=== PATIENT | female | born 1990 | race Two or more races ===

== ENCOUNTER 2019-02-20 21:14 | Emergency (ER) | payer OTHER ==
[2019-02-20 21:21] VITALS: BP 108/63
[2019-02-20] MEDS ORDERED: ACETAMINOPHEN 325 MG TABLET PO ONE (21:48)
--- NOTE | 2019-02-20 21:50 | ER Document Report ---
ED Medical Screen (RME) - General Chief Complaint: Chest Pain Stated Complaint: CHEST PAIN Time Seen by Provider: 02/20/19 21:46 - HPI Notes: 02/20/19 21:49 Patient is a 28-year-old female who is approximately 18 weeks who presents complaining of right upper quadrant pain and epigastric pain after she ate today. Patient states that the pain has been relatively constant does not radiate. Patient states that it is worse when she pushes in that area of her stomach. She is otherwise urinating normally and having normal bowel movements. Denies allergies. Surgical history consistent for to her abdomen. S he has not had any vaginal bleeding, odor, or discharge. No lower pelvic pains. No fever. I have treated and performed a rapid initial assessment of this patient. A comprehensive ED assessment and evaluation of the patient, analysis of test results and completion of medical decision making process will be conducted by additional ED providers. PHYSICAL EXAMINATION: GENERAL: Well-appearing, well-nourished and in no acute distress. A&Ox4. Answers questions appropriately. Abdomen: Limited exam triage, but there is reproducible tenderness to palpation in the epigastrium and right upper quadrant. Abdomen is otherwise soft. Lungs: CTAB - Related Data Allergies/Adverse Reactions: No Known Allergies Allergy (Unverified 02/20/19 21:41) Past Medical History - Social History Frequency of alcohol use: None Drug Abuse: None Physical Exam - Vital signs Vitals: Temp Pulse Resp BP Pulse Ox 97.8 F 75 20 108/63 100 02/20/19 21:21 02/20/19 21:21 02/20/19 21:21 02/20/19 21:21 02/20/19 21:21 Course - Vital Signs Vital signs: Temp Pulse Resp BP Pulse Ox 97.8 F 75 20 108/63 100 02/20/19 21:42 02/20/19 21:21 02/20/19 21:42 02/20/19 21:21 02/20/19 21:42
--- NOTE | 2019-02-20 21:54 | EKG REPORT ---
SEVERITY:- ABNORMAL ECG - SINUS RHYTHM FIRST DEGREE AV BLOCK : Confirmed by: Jose Eduardo Corrigan MD 20-Feb-2019 21:53:34
[2019-02-20 23:07] LABS: ABSOLUTE EOSINOPHILS # (AUTO) 0.1 10^3/uL (0.0-0.6); ABSOLUTE LYMPHOCYTES (AUTO) 2.1 10^3/uL (0.5-4.7); ABSOLUTE MONOCYTES (AUTO) 0.5 10^3/uL (0.1-1.4); ABSOLUTE NEUT (AUTO) 7.1 10^3/uL (1.7-8.2); BASOPHILS % (AUTO) 0.2 % (0-2); EOSINOPHILS % (AUTO) 1.3 % (0-6); HEMATOCRIT 36.2 % (36.0-47.0); HEMOGLOBIN 12.5 g/dL (12.0-15.5); LYMPHOCYTES % (AUTO) 21.2 % (13-45); MEAN CORPUSCULAR HEMOGLOBIN 30.8 pg (27.0-33.4); MEAN CORPUSCULAR HGB CONC 34.7 g/dL (32.0-36.0); MEAN CORPUSCULAR VOLUME 89 fl (80-97); MONOCYTES % (AUTO) 5.2 % (3-13); PLATELET COUNT 241 10^3/uL (150-450); RED BLOOD COUNT 4.07 10^6/uL (3.72-5.28); RED CELL DISTRIBUTION WIDTH 13.5 % (11.5-14.0); SEGMENTED NEUTROPHILS % (AUTO) 72.1 % (42-78); TOTAL CELLS COUNTED % (AUTO) 100 %; WHITE BLOOD COUNT 9.8 10^3/uL (4.0-10.5)
[2019-02-20 23:13] LABS: APPEARANCE,URINE SLIGHTLY-CLOUDY; BILIRUBIN,URINE NEGATIVE (NEGATIVE); COLOR,URINE STRAW; GLUCOSE, URINE NEGATIVE (NEGATIVE); KETONES,URINE NEGATIVE (NEGATIVE); PROTEIN,URINE NEGATIVE (NEGATIVE); URINE SPECIFIC GRAVITY 1.009; UROBILINOGEN,URINE NEGATIVE mg/dL (<2.0)
--- NOTE | 2019-02-20 23:18 | RADIOLOGY REPORT (SQ) ---
EXAM DESCRIPTION: US ABDOMEN LIMITED COMPLETED DATE/TME: 02/20/2019 21:48 CLINICAL HISTORY: RUQ pain COMPARISON: None. TECHNIQUE: Real-time sonographic images of the right upper abdomen were obtained using a curved multihertz transducer. FINDINGS: Pancreas: The visualized portions of the pancreas are unremarkable. Vascular: The visualized portions of the aorta and IVC are unremarkable. Liver: The liver has normal contour and echogenicity. Hepatopedal flow in the portal vein. Findings confirmed with color and spectral Doppler imaging. The common bile duct measures 0.3 cm. Gallbladder: Shadowing mobile echogenic structures within the gallbladder lumen compatible with multiple small gallstones. Normal gallbladder wall thickness. Negative reported sonographic Saeed sign. Right Kidney: The right kidney measures 13.1 cm in length. No hydronephrosis, solid renal mass, or shadowing calculi. IMPRESSION: 1. Cholelithiasis without other sonographic evidence of acute cholecystitis.
[2019-02-20 23:23] LABS: ALBUMIN 3.9 g/dL (3.5-5.0); ALKALINE PHOSPHATASE 59 U/L (38-126); ANION GAP 11 (5-19); ASPARTATE AMINO TRANSFERASE 22 U/L (14-36); BILIRUBIN,TOTAL 0.3 mg/dL (0.2-1.3); BLOOD UREA NITROGEN 9 mg/dL (7-20); CALCIUM 9.6 mg/dL (8.4-10.2); CARBON DIOXIDE 26 mmol/L (22-30); CHLORIDE 101 mmol/L (98-107); GLUCOSE 96 mg/dL (75-110); POTASSIUM 3.8 mmol/L (3.6-5.0); TOTAL PROTEIN 6.9 g/dL (6.3-8.2)
== END 2019-02-21 01:36 | disposition left against medical advice (07) ==
LOC: ER 21:14
DX: O26.92 Pregnancy related conditions, unspecified, second trimester (principal); R10.11 Right upper quadrant pain; R10.13 Epigastric pain; Z3A.18 18 weeks gestation of pregnancy
CPT/HCPCS: 36415; 76705; 80053; 81001; 83690; 85025; 93005; 93010; 99281